=== PATIENT | male | born 1995 | race Caucasian/White ===

== ENCOUNTER 2017-07-27 10:22 | Emergency (ER) | payer OTHER, SELFPAY ==
[2017-07-27 11:58] VITALS: BP 118/85; PULSE 78; RESP 18; TEMP 36.7; O2SAT 99; BMI 67.3
--- NOTE | 2017-07-27 13:09 | PC.NURSE ---
1308: pt walked out of clinic prior to being seen. Did not speak to anyone. Unable to catch pt. Not clear if pt left or will be returning.
[2017-07-27 13:28] VITALS: BP 0/0; PULSE 0; RESP 0; TEMP -17.7; TEMP 0; O2SAT 0
== END 2017-07-27 13:29 | disposition left against medical advice (07) ==
LOC: UTC 10:27
PROVIDERS: Emergency Provider Nurse Practitioner Family; Family Provider Pediatrics Pediatric Endocrinology
DX: Z53.29 Procedure and treatment not carried out because of patient's decision for other reasons (principal)
CPT/HCPCS: 99202

== ENCOUNTER → 2017-07-31 11:13 | Outpatient (CLI) | payer OTHER, SELFPAY ==
--- NOTE | 2017-07-31 11:18 | XR_ITS ---
EXAM: XR lumbar spine min 4V HISTORY: ITS.REASON: LUMBAR PAIN,THORACIC SPRAIN,STRAIN OF NECK ORDERING PHYSICIAN: Karen Mijares PATIENT AGE: 22 years COMPARISON: 12/16/2015 FINDINGS: Normal alignment. No fracture or dislocation. No lytic or blastic change. No significant degenerative change. The disc spaces are preserved. There is straightening of the lumbar lordosis. This is nonspecific but may be seen with muscle spasm. IMPRESSION: Straightening of lumbar lordosis otherwise negative
--- NOTE | 2017-07-31 11:18 | XR_ITS ---
EXAM: XR cervical spine 5V HISTORY: ORDERING PHYSICIAN: Karen Mijares PATIENT AGE: 22 years COMPARISON: None FINDINGS: Normal alignment. No fracture or dislocation. No lytic or blastic change. No significant degenerative change. The disc spaces are preserved. The neural foramina are widely patent. No evidence of cervical rib IMPRESSION: Negative cervical spine
--- NOTE | 2017-07-31 11:22 | XR_ITS ---
EXAM: XR thoracic spine 3V HISTORY: ITS.REASON: THORACIC SPRAIN,BACK PAIN COMPARISON: None FINDINGS: Normal alignment. No fracture or dislocation. No lytic or blastic change. No significant degenerative change. The disc spaces are preserved. Suspect an osteochondroma projecting off the anterior aspect of the right second rib IMPRESSION: Negative thoracic spine. Possible osteochondroma the right second rib
== END ==
PROVIDERS: PCP Nurse Practitioner; Visit Provider Nurse Practitioner
DX: S23.9XXA Sprain of unspecified parts of thorax, initial encounter (principal); M54.5 Low back pain; S16.1XXA Strain of muscle, fascia and tendon at neck level, initial encounter
CPT/HCPCS: 72050; 72072; 72110

== ENCOUNTER 2019-10-13 21:01 | Emergency (ER) | payer BC, SELFPAY ==
[2019-10-13 21:08] VITALS: BP 128/88; PULSE 105; RESP 16; TEMP 37.2; O2SAT 96; BMI 28.2
--- NOTE | 2019-10-13 21:18 | XR_ITS ---
PROCEDURE: XR SHOULDER LT MIN 2V CLINICAL INDICATION: Pain, no injury COMPARISON: No exams were available for comparison FINDINGS: The clavicle is intact and the AC joint appears normal. The humeral head and glenoid normal. There is no subacromial stenosis. The soft tissues are normal. IMPRESSION: No acute findings. Dictated by: Dr. Kishor Lino MD 10/14/2019 07:[address] Kishor Lino MD in [place] 10/14/2019 07:45
--- NOTE | 2019-10-13 21:18 | XR_ITS ---
PROCEDURE: XR ELBOW LT MIN 3V CLINICAL INDICATION: pain COMPARISON: No exams were available for comparison FINDINGS: No fracture or dislocation. No lytic or blastic change. There is normal mineralization. The joint spaces are well-preserved. No significant degenerative/arthritic changes. No erosive changes evident. Other findings:There is no abnormal fat pad sign. IMPRESSION: No acute findings. Dictated by: Dr. Kishor Lino MD 10/14/2019 07:[address] Kishor Lino MD in [place] 10/14/2019 07:44
[2019-10-13 21:46] VITALS: BP 124/72; PULSE 90; RESP 16; O2SAT 100
--- NOTE | 2019-10-13 22:32 | HMH.EDUPEXT ---
ED Disposition Clinical Impression: Left shoulder tendonitis Disposition: Home, Self-Care Condition on Discharge: Good Instructions: DI for Shoulder Pain Additional Instructions: use meds and see pcp and ortho for follow up Prescriptions: predniSONE [Prednisone 20mg Tab] 20 mg PO BID #10 tab Transmission Status: Pending to [id number] Referrals: Provider,MD Juan [Primary Care Provider] - Chinedu Francisco MD [Staff Physician] - - Critical Care Critical Care Time: No Attestation: On 10/13/19, the high probability of a clinically significant, sudden or life threatening deterioration of the following system(s) required my full and direct attention, intervention and personal management. The time I documented below is in addition to time spent performing reported procedures but includes the following listed in this critical care notation. Medical Decision Making - Medical Records Medical records reviewed: Yes: I reviewed the patient's medical records. - Mohit Inquiry Pt receiving controlled substance: No Vital Signs: 10/13/19 21:08 10/13/19 21:46 Temperature 98.9 F Temperature Source Oral Pulse Rate [Right] 105 H 90 Respiratory Rate 16 16 Blood Pressure [Right Arm] 128/88 124/72 Blood Pressure Mean [Right Arm] 101 89 Blood Pressure Source [Right Arm] Automatic Cuff Automatic Cuff Blood Pressure Position [Right Arm] Sitting Sitting 02 Sat by Pulse Oximetry 96 100 Oxygen Delivery Method Room Air Room Air - Lab Data Lab results reviewed: Yes: I reviewed the patient's lab results. Orders (Tests/Meds): ORDERS Category Date Time Status XR elbow LT min 3V Stat Exams 10/13/19 21:18 Taken XR shoulder LT min 2V Stat Exams 10/13/19 21:18 Taken - Radiology Data #1 Image(s): Shoulder, Elbow Image Reviewed: Yes I reviewed the patient's radiology image Preliminary Findings: No Fracture Seen Upper Extremity HPI - General Chief Complaint: Extremity Problem,Nontraumatic Stated Complaint: Pain L arm and can't move Time Seen by Provider: 10/13/19 21:35 Mode of Arrival: Ambulatory Source of Information: Patient, Medical Record Limitations: No Limitations Description of Symptoms (Recalled from ER Triage Doc. by RN): Pt states his left shoulder and elbow started hurting him about 1.5 weeks ago, denies injury to arm. Pt states this happened before, but never this long. - History of Present Illness HPI narrative: lt upper ext pain with dec rom - no trauma - worse with mov - has happened before but not as long MD complaint: injury to: left, shoulder Onset (ago): day(s) Other Extremity Injury: Left: shoulder Other injuries: none Handedness: right Place: home Severity: moderate Context: other (no fall) Associated symptoms: denies other symptoms - Related Data Previous Rx's Medication Instructions Recorded predniSONE [Prednisone 20mg 20 mg PO BID #10 tab 10/13/19 Tab] Allergies Allergy/AdvReac Type Severity Reaction Status Date / Time No Known Allergies Allergy Verified 05/07/19 14:36 [facility] History - Hepatitis A Screen Drug use history?: No High risk sexual behaviors?: No History of sexually transmitted infection?: No Currently employed?: No Childcare worker?: No Do you have indoor plumbing?: Yes Do you have electricity?: Yes Attestation statement:: This patient has been screened for Hepatitis A risk factors. I have reviewed the patient's past medical history: Yes Medical History: Denies:: Cancer, Diabetes Mellitus Type 1, Diabetes Mellitus Type 2, MRSA Amputation: No - Social History Smoking Status: Current every day smoker Tobacco Type: smokeless tobacco Alcohol Intake: current Alcohol Intake Frequency:: a few times a week Occupational Status: employed ROS Obtained: Yes All systems reviewed & no additional complaints - Constitutional Constitutional: Denies fever(s) - Eyes Eyes: Denies change in vision - ENT Ears,
[2019-10-13 22:52] VITALS: BP 120/73; PULSE 95; RESP 16; TEMP 36.9; O2SAT 98
[2019-10-13 22:58] VITALS: BP 120/73; PULSE 95; RESP 16; TEMP 36.9; O2SAT 98
== END 2019-10-13 22:59 | disposition home or self-care (01) ==
PROVIDERS: Emergency Provider Emergency Medicine
DX: M75.82 Other shoulder lesions, left shoulder (principal); F17.290 Nicotine dependence, other tobacco product, uncomplicated
CPT/HCPCS: 73030; 73080; 99282

== ENCOUNTER → 2021-01-29 21:31 | Outpatient (CLI) | payer SELFPAY | PROVIDERS: Visit Provider Nurse Practitioner Family | DX: Z20.822 Contact with and (suspected) exposure to COVID-19 (principal) | CPT/HCPCS: U0003 ==

== ENCOUNTER 2021-03-03 19:33 | Emergency (ER) | payer BC, SELFPAY ==
[2021-03-03 19:35] VITALS: BP 148/79; PULSE 79; RESP 18; TEMP 37.7; O2SAT 98; BMI 36.9
--- NOTE | 2021-03-03 19:45 | XR_ITS ---
PROCEDURE INFORMATION: Exam: XR Left Ankle Exam date and time: 03/03/2021 7:45 PM Age: 25 years old Clinical indication: Injury or trauma; Other: Stepped off curb and rolled ankle; Sprain or strain; Left; Injury date: 03/03/2021; Additional info: Twisted ankle TECHNIQUE: Imaging protocol: XR Left ankle. Views: 3 or more views. COMPARISON: CR XR FOOT LT MIN 3V 03/03/2021 7:43 PM FINDINGS: Bones/joints: Tiny calcifications/osseous fragments inferior to the medial malleolus are of chronic etiology and may be related to sequela of prior injury or tendinopathy. Normal anatomic alignment. There is no evidence of acutely displaced fractures. There is no evidence of joint dislocation. No aggressive osseous lesions. Soft tissues: There is soft tissue swelling. IMPRESSION: 1. Negative for acute skeletal pathology. 2. Ankle swelling.
--- NOTE | 2021-03-03 19:48 | XR_ITS ---
PROCEDURE INFORMATION: Exam: XR Left Foot Exam date and time: 03/03/2021 7:48 PM Age: 25 years old Clinical indication: Injury or trauma; Other: Stepped off curb and rolled ankle; Sprain or strain; Foot; Left; Injury date: 03/03/2021; Additional info: Stepped off of a curb TECHNIQUE: Imaging protocol: XR Left foot. Views: 3 or more views. COMPARISON: No relevant prior studies available. FINDINGS: Bones/joints: Osseous anatomic alignment is well preserved. No acutely displaced fracture or dislocation. Joint spaces are well preserved. Soft tissues: No significant soft tissue swelling. IMPRESSION: No acute findings.
--- NOTE | 2021-03-03 20:01 | HMH.EDUTC ---
[facility] Disposition Clinical Impression: Left ankle sprain Qualifiers: Encounter type: initial encounter Involved ligament of ankle: unspecified ligament Qualified Code(s): S93.402A - Sprain of unspecified ligament of left ankle, initial encounter Disposition: Home, Self-Care Condition on Discharge: Good Instructions: How to Use Crutches, How To Perform RICE (Rest, Ice, Compress, Elevate), DI for Ankle Sprain, Ankle Sprain Additional Instructions: *No weight bearing *RICE, Rest the extremity, Ice 15-20 minutes 3-4 times daily, Compress- wear the leo wrap as discussed as much as possible to help reduce swelling and pain, Elevate the extremity when at rest *Leo wrap/walking boot is for support and help control swelling, use it except in the shower. Be sure that is not to tight but not to loose either *Elevate when resting *Ibuprofen as directed on package every 6-8 hours as needed for pain an inflammation. If need something more can take Tylenol in between doses of Ibuprofen to help Immediately follow up with your family doctor for new or worsening of symptoms, or no noticeable improvement over the next 3-5 days Follow up with Orthopedics or Podiatry Call office for appointment Call back to the [facility] later this evening or tomorrow for the official reading of your xray Return if needed Straight to ER if any life threatening symptoms Referrals: Provider,Referral, [Primary Care Provider] - As needed Davida Hernandez DPM [Staff Physician] - Gardenia Stevenson APRN [Nurse Practitioner] - Chinedu Francisco MD [Staff Physician] - Forms: Work/School Release Medical Decision Making - Mohit Inquiry Pt receiving controlled substance: No Mohit was queried for this patient: No Vital Signs: 03/03/21 19:35 03/03/21 20:20 Temperature 99.9 F H 99.9 F H Temperature Source Oral Pulse Rate 79 Pulse Rate [Right Brachial] 79 Respiratory Rate 18 18 Blood Pressure 148/79 H Blood Pressure [Right Arm] 148/79 H Blood Pressure Mean [Right Arm] 102 Blood Pressure Source [Right Arm] Automatic Cuff Blood Pressure Position [Right Arm] Sitting 02 Sat by Pulse Oximetry 98 Oxygen Delivery Method Room Air - Radiology Data #1 Image(s): Ankle Image Reviewed: Yes I have reviewed radiologist's interpretation IMPRESSION: 1. Negative for acute skeletal pathology. 2. Ankle swelling. #2 Image(s): Foot/Toes Image Reviewed: Yes I have reviewed radiologist's interpretation IMPRESSION: No acute findings. [facility] HPI - General Stated complaint: AO10/02 sprained left ankle Time Seen by Provider: 03/03/21 20:01 Mode of Arrival: Ambulatory Source of Information: Patient Limitations: No Limitations Description of Symptoms (Recalled from Triage Doc. by RN): PATIENT C/O LEFT ANKLE AND FOOT PAIN. REPORTS HE STEPPED OFF OF CURB AND TWISTED HIS ANKLE LAST NIGHT HEENT Symptoms (Recalled from RN notes): No Resp Symptoms (Recalled from RN notes): No Skin Symptoms (Recalled from RN notes): No MS Symptoms (Recalled from RN notes): Yes Functional Status (Recalled from RN notes): WNL - History of Present Illness Provider Complaint: Patient states that he was out last night and went to step off the curb when his left ankle rolled and he felt something pop States that he has been having pain and swelling ever since States that this evening he was still having pain so he came in to get it checked out - Related Data Home Medications Medication Instructions Recorded Confirmed No Known Home Medications 01/29/21 01/29/21 Allergies Allergy/AdvReac Type Severity Reaction Status Date / Time No Known Allergies Allergy Verified 01/29/21 17:20 - Worker's Comp Is this a Worker's Comp case?: No [facility] History - Hepatitis A Screen Drug use history?: No High risk sexual behaviors?: No History of sexually transmitted infection?: No Currently employed?: No Childcare worker?: No Do you have indoor plumbing?: Yes Do you have
[2021-03-03 20:20] VITALS: BP 148/79; PULSE 79; RESP 18; TEMP 37.7; O2SAT 98
== END 2021-03-03 20:50 | disposition home or self-care (01) ==
PROVIDERS: Emergency Provider Nurse Practitioner
DX: S93.402A Sprain of unspecified ligament of left ankle, initial encounter (principal); X50.1XXA Overexertion from prolonged static or awkward postures, initial encounter; Y92.480 Sidewalk as the place of occurrence of the external cause; Z87.891 Personal history of nicotine dependence
CPT/HCPCS: 29515; 73610; 73630; 99202; G0463

== ENCOUNTER 2021-03-15 11:18 | Outpatient (RCR) | payer BC, SELFPAY | END 2021-03-15 12:00 | disposition home or self-care (01) | LOC: PT 11:18 | PROVIDERS: Visit Provider Orthopaedic Surgery | DX: M25.572 Pain in left ankle and joints of left foot (principal) | CPT/HCPCS: 97760 ==

== ENCOUNTER 2021-04-03 17:35 | Emergency (ER) | payer BC, SELFPAY ==
[2021-04-03 17:50] VITALS: BP 117/84; PULSE 109; RESP 20; TEMP 37.5; O2SAT 97; BMI 33.0
[2021-04-03 18:31] LABS: UTC Strep Screen (Rapid) Positive (Negative)
[2021-04-03 18:48] LABS: Influenza A, PCR Not Detected (NotDetected); Influenza B, PCR Not Detected (NotDetected)
--- NOTE | 2021-04-03 19:03 | HMH.EDUTC ---
[facility] [place] Dis[place] Clinical Impression: Strep throat Disposition: Home, Self-Care Condition on Discharge: Good Instructions: Strep Throat, DI for Strep Throat Additional Instructions: *Monitor Temp, Over the counter Motrin or Tylenol as directed/as needed Tylenol every 4 hours and Motrin every 6 hours (as long as your family doctor has told you that you can take it) for fever or pain. and straight to ER if unable to lower temp less than 101.0 after medication given *Warm salt water gargles may help to soothe the throat *Throat Lozenges *Warm fluids like tea with honey may help to soothe the throat *Sleep elevated *Humidifier/Vaporizer *If you did not take Penicillin shot or was unable to, start taking antibiotic immediately and make sure that you take it for the FULL length of time although you should start to feel better in 24-48 hours *change toothbrush and toothpaste 24-48 hours after starting to take antibiotics so you do not reinfect yourself Monitor Temp. Tylenol and/or Ibuprofen as needed. ER if fever is no less than 101 despite alternating Tylenol and Ibuprofen * Encourage fluids, water, Gatorade, powerade, pedialyte if /toddler/or child *Cold fluids, popsicles and ice cream may feel good on his throat Follow up IMMEDIATELY for new or worsening symptoms or no Noticeable improvement over the next 48-72 hours. 911 for difficulty breathing or swallowing You were tested for today for COVID19 your test result should be back in the next 24-48 hours, you can view your results on the [facility] portal you will be given hand out on how to log on if you have trouble you may call the [facility] You was given a handout with instructions for Self Quarantine and Self isolation for while you wait on test results and what to do if they are positive If you are positive the Health Dept will be contacting you also Make sure to take your Vitamins Vit. C Vit D and Zinc if you can take them Prescriptions: Amoxicillin [Amoxicillin 875MG Tab] 875 mg PO Q12H #20 tab Transmission Status: Pending to [facility] #[id number] Referrals: Provider,Referral, MD [Primary Care Provider] - As needed Forms: Work/School Release Time of Disposition: 19:06 Medical Decision Making - Mohit Inquiry Pt receiving controlled substance: No Mohit was queried for this patient: No Vital Signs: 04/03/21 17:50 Temperature 99.5 F Temperature Source Oral Pulse Rate [Right Brachial] 109 H Respiratory Rate 20 Blood Pressure [Right Arm] 117/84 Blood Pressure Mean [Right Arm] 95 Blood Pressure Source [Right Arm] Automatic Cuff Blood Pressure Position [Right Arm] Sitting 02 Sat by Pulse Oximetry 97 Oxygen Delivery Method Room Air - Lab Data Lab results reviewed: Yes: I reviewed the patient's lab results. Lab Results 04/03/21 18:11: Strep Scn Rapid Clinic Positive A Orders (Tests/Meds): ORDERS Category Date Time Status Rapid PCR Covid and Flu A/B Stat Lab 04/03/21 18:05 Received [facility] [place] HPI - General Stated complaint: fever,PEARL,Stomach ache body ache cough sore throat Time Seen by Provider: 04/03/21 19:04 Mode of Arrival: Ambulatory Source of Information: Patient Limitations: No Limitations Description of Symptoms (Recalled from Triage Doc. by RN): PATIENT C/O FEVER, COUGH, SORE THROAT, BODY ACHES, STOMACH ACHE AND HEADACHE SINCE LAST NIGHT HEENT Symptoms (Recalled from RN notes): Yes Resp Symptoms (Recalled from RN notes): No Skin Symptoms (Recalled from RN notes): No MS Symptoms (Recalled from RN notes): No Functional Status (Recalled from RN notes): WNL - History of Present Illness Provider Complaint: Patient states that he has been having nausea, upset stomach, fever, chills and sore throat States that he has been feeling achy all over not feeling well States that today he was still feeling ill so he came in to get checked - Related Data Previous Rx's Medication Instructions Recorded Amoxicillin [Amoxicillin 875MG 875
[2021-04-03 19:27] LABS: Coronavirus 19, PCR Detected (NotDetected)
[2021-04-03 19:30] VITALS: BP 117/84; PULSE 109; RESP 20; TEMP 37.5; O2SAT 97
--- NOTE | 2021-04-03 19:35 | PC.NURSE ---
PATIENT NOTIFIED OF POSITIVE COVID TEST AT THIS TIME
== END 2021-04-03 19:39 | disposition home or self-care (01) ==
PROVIDERS: Emergency Provider Nurse Practitioner
DX: J02.0 Streptococcal pharyngitis (principal); U07.1 COVID-19; F17.290 Nicotine dependence, other tobacco product, uncomplicated
CPT/HCPCS: 87880; 99203; C9803; G0463; U0003; U0005

== ENCOUNTER → 2022-03-03 11:37 | Outpatient (CLI) | payer BC, SELFPAY | PROVIDERS: Visit Provider Nurse Practitioner Family | DX: Z02.1 Encounter for pre-employment examination (principal) ==

== ENCOUNTER 2022-08-27 23:01 | Emergency (ER) | payer BC, SELFPAY ==
[2022-08-27 23:09] VITALS: RESP 19; TEMP 36.5; O2SAT 98; BMI 33.0
--- NOTE | 2022-08-28 00:07 | HMH.EDWNDL ---
Discharge Plan Disposition Patient Disposition: Home, Self-Care Prescriptions Prescriptions: New cephalexin [cephalexin] 500 mg capsule 500 mg PO TID Qty: 30 0RF No Action amoxicillin 875 MG tablet 875 mg PO Q12H Qty: 20 0RF Referrals Follow up/Referrals: Provider,Referral, [Primary Care Provider] - See instructions Clinical Impressions Clinical Impression: Laceration Instructions Patient Instructions: DI for Laceration Repair Discharge ED Provider: Ching (ED)Bob Wound/Laceration HPI General Chief Complaint: Wound/Laceration Stated Complaint: AO 08/27/22 2145 Laceration Right foot Time Seen by Provider: 08/28/22 00:08 Mode of Arrival: Family Vehicle Source of Information: Patient, Spouse and Medical Record Limitations: No Limitations Description of Symptoms (Recalled from ER Triage Doc. by RN): 27 yo male presents with CC of right foot laceration x 2. According to patient, an axe began to fall and he kicked at it to prevent it from hitting him and it sliced the bottom of his foot in two places. SO is a nurse and cleaned wound with hibiclens and wrapped with a pressure wrap dressing. VSS. Reported minimal blood loss. History of Present Illness HPI narrative: lac to sole of rt foot on ax tonight Onset (ago): hour(s) Extremity Location: Right: foot Place: home Patient tetanus UTD: Yes Context: accidental Associated symptoms: none Related Data Previous Rx's Medication Instructions Recorded amoxicillin 875 mg tablet 875 mg PO Q12H #20 tabs 04/03/21 cephalexin 500 mg capsule 500 mg PO TID #30 caps 08/28/22 Allergies Allergy/AdvReac Type Severity Reaction Status Date / Time No Known Allergies Allergy Verified 03/15/21 10:53 [facility] Disclaimer: The information contained in this section may have been updated after the patient was seen, as this information can be updated by other users. Social History Smoking Status: Never smoker alcohol intake: current current occupational status: employed Travel in the last 8 weeks: None current occupational exposures/hazards: No ROS Obtained: Yes All systems reviewed & no additional complaints except as documented Physical Exam General General appearance: alert Head Head exam: normocephalic Eye Eye exam: Present PERRL and EOMI ENT ENT exam: Present mucous membranes moist Neck Neck exam: Present full ROM Respiratory Respiratory exam: Absent respiratory distress Cardiovascular Cardiovascular exam: Present regular rate Extremities Exam Extremities exam: Present full ROM and other (2.5 cm lac sole of rt foot ) Neurological Exam Neurological exam: Present alert, oriented X3 and CN II-XII intact; Absent motor sensory deficit Psychiatric Psychiatric exam: Present normal affect Skin Skin exam: Absent rash Medical Decision Making Medical Records Medical records reviewed: Yes I reviewed the patient's medical records. Mohit Inquiry Pt receiving controlled substance: No Vital Signs: 08/27/22 23:09 Temperature 97.7 F Temperature Source Oral Respiratory Rate 19 02 Sat by Pulse Oximetry 98 Oxygen Delivery Method Room Air Lab Data Lab results reviewed: Yes I reviewed the patient's lab results. Medical Decision Narrative: lac rt foot and will need sutures out 8-10 days and recheck if needed Procedures Laceration Laceration 1: Site: foot Side (If applicable): right Size (cm): 2.5 Description: linear Depth: involves subcutaneous layer Local Anesthetic: lidocaine 1% Amount of anesthesia used (mL): 11 Pre-repair: deep structures intact Skin layer closed with: nylon Size (cm): 3-0 Number of sutures: 8 Technique: simple, interrupted Critical Care Time Critical Care Time Critical Care Time: No Attestation: On 08/27/22, the high probability of a clinically significant, sudden or life threatening deterioration of the following sy
[2022-08-28 00:31] VITALS: BP 128/73; PULSE 81; RESP 19; TEMP 36.5; O2SAT 99
== END 2022-08-28 00:32 | disposition home or self-care (01) ==
PROVIDERS: Emergency Provider Emergency Medicine
DX: S91.311A Laceration without foreign body, right foot, initial encounter (principal); W26.8XXA Contact with other sharp object(s), not elsewhere classified, initial encounter
CPT/HCPCS: 12001; 99282; 99283

== ENCOUNTER 2022-11-14 17:39 | Emergency (ER) | payer BC, OTHER, SELFPAY ==
[2022-11-14 17:50] VITALS: BP 126/75; PULSE 73; RESP 20; TEMP 36.8; O2SAT 99; BMI 32.1
--- NOTE | 2022-11-14 18:14 | PC.NURSE ---
rounded on patient, no needs at this time. Spouse at bedside
[2022-11-14 18:20] LABS: Basophils % 0.4 % (0.1-2.0); Chloride 101 mmol/L (98-107); Eosinophils # 0.2 K/mm3 (0.0-0.4); Eosinophils % 2.4 % (0.1-12.0); Hematocrit 44.1 % (42.0-52.0); Hemoglobin 14.6 g/dL (14.1-18.0); Lymphocytes % 33.5 % (10-50); Mean Corpuscular HGB Conc 33.2 g/dL (31.8-35.4); Mean Corpuscular Hemoglobin 27.7 pg (27.0-31.2); Mean Corpuscular Volume 83.3 fl (80-94); Mean Platelet Volume 8.7 fl (7.4-10.4); Monocytes # 0.6 K/mm3 (0.1-1.0); Monocytes % 6.6 % (1.7-9.3); Neutrophils # 5.1 K/mm3 (1.8-7.8); Neutrophils % 57.2 % (37.0-80.0); Platelet Count 237 K/mm3 (142-424); Red Blood Count 5.29 M/mm3 (4.60-6.20); Red Cell Distribution Width 13.6 % (11.5-17.5); Sodium 140 mmol/L (136-145); White Blood Count 8.9 K/mm3 (4.8-10.8)
[2022-11-14 18:21] LABS: Potassium 4.3 mmoL/L (3.5-5.1)
[2022-11-14 18:23] LABS: Alanine Aminotransferase 25 U/L (12-78); Alkaline Phosphatase 66 U/L (38-126); Amylase 78 U/L (30-110); Anion Gap 14.3 mEq/L (5-15); Aspartate Amino Transferase 38 U/L (17-59); Bilirubin,Total 0.4 mg/dl (0.2-1.3); Blood Urea Nitrogen 17 mg/dl (9-20); Carbon Dioxide 29 mmol/L (22.0-30.0); Creatinine Clearance Estimated 181 mL/min (50-200); Estimated Glomerular Filt Rate 91 ml/min (>60); GFR (African American) 110 ML/MIN (>60); Glucose 88 mg/dl (74-100)
[2022-11-14 18:24] LABS: Albumin Level 4.5 g/dl (3.5-5.0); Albumin/Globulin Ratio 1.4 (1.1-1.8); Calcium 9.1 mg/dl (8.4-10.2); Globulin 3.3 g/dL (1.3-3.2); Lipase 81 U/L (23-300); Total Protein,Serum 7.8 g/dl (6.3-8.2)
--- NOTE | 2022-11-14 18:38 | HMH.EDGENADL ---
Discharge Plan Disposition Patient Disposition: Home, Self-Care Prescriptions Prescriptions: New dicyclomine 20 mg tablet 20 mg PO TID PRN (Reason: abdominal pain or spasm) 7 Days Qty: 21 0RF ondansetron 4 mg tablet,disintegrating 4 mg PO Q6H PRN (Reason: nausea and vomiting) 5 Days Qty: 20 0RF No Action omeprazole 20 mg capsule,delayed release(DR/EC) 20 mg PO DAILY Referrals Follow up/Referrals: Jose Martin Arias MD [Staff Physician] - See instructions Rehana Sheehan APRN [Primary Care Provider] - See instructions Ramses Bautista MD [Staff Physician] - See instructions (within one week to schedule EGD ) Activity Restrictions/Add. Instructions Additional Instructions/Restrictions: Your emergency work-up for your periumbilical and epigastric abdominal pain is unremarkable. Remaining on the differential includes peptic ulcer disease I recommend you follow-up with a executive search consultant or general surgeon for an outpatient endoscopy or EGD. I have given you a referral to Dr. Arias due to schedule a follow-up appointment. Please return with any blood in your vomit black stools or bright red bloody stools. Clinical Impressions Clinical Impression: Abdominal pain Discharge ED Provider: Mihcael Hurtado General Adult HPI General Chief complaint: Abdominal Pain Stated complaint: abd/back pain Time Seen by Provider: 11/14/22 18:39 Mode of Arrival: Ambulatory Source of Information: Patient Limitations: No Limitations Description of Symptoms (Recalled from ER Triage Doc. by RN): pt reports epigastric abdominal pain for about a week and a half, reports occasional nausea, denies vomiting or diarrhea, saw pcp on thursday where she has been treating him for GERD, states he has been eating a bland diet and following all instructions from her but nothing is helping, states tylenol was helping with pain until a few days ago, states the pain is in his back as well now History of Present Illness HPI narrative: Patient is a 27-year-old male presenting today with epigastric and periumbilical discomfort since Thursday. This has not been particularly associated with any meals. No blood in the stool including hematochezia or melena. No hematemesis. His who is an OB RN has been giving him milk of magnesia to make sure this is not constipation he has been having good bowel movement without any difficulty. No flank pain but he does state that the pain initiates in the periumbilical and epigastric region and radiates through to his back. Between his shoulder blades where he is describing his pain. No blood in his urine. No right upper quadrant abdominal localization. No fevers or chills or any other symptoms. Patient did have a few drinks but nothing out of the ordinary the day before the onset of the symptoms. Related Data Home Medications Medication Instructions Recorded Confirmed omeprazole 20 mg capsule,delayed 20 mg PO DAILY gerd 11/14/22 11/14/22 release Previous Rx's Medication Instructions Recorded dicyclomine 20 mg tablet 20 mg PO TID PRN abdominal pain or 11/14/22 spasm 7 days #21 tabs ondansetron 4 mg disintegrating 4 mg PO Q6H PRN nausea and 11/14/22 tablet vomiting 5 days #20 tabs Allergies Allergy/AdvReac Type Severity Reaction Status Date / Time No Known Allergies Allergy Verified 11/14/22 18:03 [facility] Disclaimer: The information contained in this section may have been updated after the patient was seen, as this information can be updated by other users. Medical History (Updated 11/14/22 @ 19:54 by Michael Hurtado MD) Enteritis Laceration Left ankle sprain Left shoulder tendonitis Pain Pain, eye, right Strep throat Family History (Updated 11/11/22 @ 13:34 by Rehana Sheehan APRN) Father Diabetes Social History (Updated 11/11/22 @ 13:35 by Rehana Sheehan APRN) Smoking Status: Never smoker alcohol intake: current substance use type: denies use current occupational
--- NOTE | 2022-11-14 18:47 | CT_ITS ---
PROCEDURE INFORMATION: Exam: CT Abdomen And Pelvis With Contrast Exam date and time: 11/14/2022 7:01 PM Age: 27 years old Clinical indication: Abdominal pain; Epigastric; Additional info: Mid epigastric periumbilical pain rad to back TECHNIQUE: Imaging protocol: Computed tomography of the abdomen and pelvis with contrast. Radiation optimization: All CT scans at this facility use at least one of these dose optimization techniques: automated exposure control; mA and/or kV adjustment per patient size (includes targeted exams where dose is matched to clinical indication); or iterative reconstruction. Contrast material: ISOVUE; Contrast volume: 75 ml; Contrast route: IV; REPORTING DATA: Count of CT and Cardiac NM exams in prior 12 months: This patient has received 0 known CTs and 0 known cardiac nuclear medicine studies in the 12 months prior to the current study. COMPARISON: CT ABDOMEN PELVIS W CON 05/07/2019 3:08 PM FINDINGS: Lungs: Visualized lung bases are clear. Heart: Heart size normal. Mediastinal space: The visualized distal esophagus is largely contracted without gross abnormality. Liver: Normal contour. No mass lesions. No intrahepatic biliary ductal dilatation. Gallbladder and bile ducts: Normal. No calcified stones. No ductal dilation. Pancreas: Normal. No inflammatory changes or ductal dilation. Spleen: Borderline mild splenomegaly measuring 13.4 cm. No focal splenic lesions. Adrenal glands: Normal. No adrenal mass. Kidneys and ureters: No acute abnormalities. No hydronephrosis or hydroureter. No urinary tract stones are identified. Stomach and bowel: The stomach is largely contracted. The small bowel is nondilated with no gross abnormality. No acute colonic abnormalities. Appendix: The appendix is normal in caliber and demonstrates no evidence of appendicitis. Intraperitoneal space: No free fluid or air. Vasculature: No acute process. No abdominal aortic aneurysm. Lymph nodes: No adenopathy. Urinary bladder: Unremarkable as visualized. Reproductive: Unremarkable as visualized. Bones/joints: No acute osseous abnormalities. Mild-moderate disc space narrowing with 3 mm retrolisthesis and 3 mm disc bulge at L5-S1. Soft tissues: Small left and miniscule right fatty inguinal hernias are present with no bowel herniation or features of strangulation. IMPRESSION: 1. No definite acute findings. 2. Borderline mild splenomegaly. 3. Additional nonemergent findings detailed above.
[2022-11-14 19:56] LABS: Microscopic, Urine URINE MICROSCOPIC (MICROSCOPIC)
[2022-11-14 20:03] VITALS: BP 125/70; PULSE 73; RESP 16; TEMP 36.8; O2SAT 98
[2022-11-14 20:08] LABS: Appearance,Urine CLEAR (Clear); Bilirubin,Urine Negative (Negative); Blood, Urine Negative (Negative); Color,Urine YELLOW (Yellow); Glucose,Urine (UA) Negative (Negative); Ketones,Urine Negative (Negative); Leukocyte Esterase,Urine Negative (Negative); Nitrate,Urine Negative (Negative); PH,Urine 6.5 (5.0-8.5); Protein,Urine Negative (Negative); Specific Gravity, Urine 1.015 (1.005-1.030); Urobilinogen,Urine 0.2 EU/dl (0.2)
[2022-11-14 20:32] LABS: Sperm,Urine OCC /lpf; Squamous Epithelial Cell,Urine Occasional #/hpf (0-5)
== END 2022-11-14 20:12 | disposition home or self-care (01) ==
PROVIDERS: Emergency Provider Student in an Organized Health Care Education/Training Program; PCP Nurse Practitioner Family
DX: R10.13 Epigastric pain (principal); R10.33 Periumbilical pain; R11.0 Nausea
CPT/HCPCS: 74177; 80053; 81001; 82150; 83690; 85025; 96361; 96374; 96375; 99285; Q9967

== ENCOUNTER → 2022-11-18 10:24 | Outpatient (CLI) | payer BC, OTHER, SELFPAY ==
[2022-11-18 10:56] LABS: Basophils % 0.2 % (0.1-2.0); Eosinophils # 0.2 K/mm3 (0.0-0.4); Eosinophils % 2.7 % (0.1-12.0); Hematocrit 48.8 % (42.0-52.0); Hemoglobin 15.8 g/dL (14.1-18.0); Lymphocytes # 2.4 K/mm3 (0.7-4.5); Lymphocytes % 35.1 % (10-50); Mean Corpuscular HGB Conc 32.4 g/dL (31.8-35.4); Mean Corpuscular Hemoglobin 27.2 pg (27.0-31.2); Mean Corpuscular Volume 83.9 fl (80-94); Mean Platelet Volume 8.4 fl (7.4-10.4); Monocytes # 0.4 K/mm3 (0.1-1.0); Monocytes % 5.3 % (1.7-9.3); Neutrophils # 3.9 K/mm3 (1.8-7.8); Neutrophils % 56.8 % (37.0-80.0); Platelet Count 241 K/mm3 (142-424); Red Blood Count 5.81 M/mm3 (4.60-6.20); Red Cell Distribution Width 13.6 % (11.5-17.5); White Blood Count 6.9 K/mm3 (4.8-10.8)
[2022-11-18 11:23] LABS: Alanine Aminotransferase 37 U/L (12-78); Albumin Level 4.4 g/dl (3.5-5.0); Albumin/Globulin Ratio 1.6 (1.1-1.8); Alkaline Phosphatase 67 U/L (38-126); Anion Gap 14.2 mEq/L (5-15); Aspartate Amino Transferase 40 U/L (17-59); Bilirubin,Total 0.7 mg/dl (0.2-1.3); Blood Urea Nitrogen 13 mg/dl (9-20); Calcium 9.2 mg/dl (8.4-10.2); Carbon Dioxide 29 mmol/L (22.0-30.0); Chloride 103 mmol/L (98-107); Cholesterol 195 mg/dl (140-200); Estimated Glomerular Filt Rate 91 ml/min (>60); GFR (African American) 110 ML/MIN (>60); Globulin 2.8 g/dL (1.3-3.2); Glucose 90 mg/dl (74-100); HDL Cholesterol 39 mg/dl (40-60); Potassium 4.2 mmoL/L (3.5-5.1); Sodium 142 mmol/L (136-145); Total Protein,Serum 7.2 g/dl (6.3-8.2); Triglycerides 213 mg/dl (30-150); VLDL Cholesterol 43 mg/dL (0-40)
[2022-11-18 11:26] LABS: Hemoglobin A1C 5.6 % (4.0-6.0)
[2022-11-18 11:53] LABS: Thyroid Stimulating Hormone 1.78 uIU/mL (0.465-4.68)
== END ==
PROVIDERS: PCP Nurse Practitioner Family; Visit Provider Nurse Practitioner Family
DX: R10.9 Unspecified abdominal pain (principal); E66.9 Obesity, unspecified; Z68.32 Body mass index [BMI] 32.0-32.9, adult; Z13.1 Encounter for screening for diabetes mellitus; Z13.220 Encounter for screening for lipoid disorders
CPT/HCPCS: 36415; 80053; 80061; 83036; 84443; 85025

== ENCOUNTER 2024-02-16 06:47 | Emergency (ER) | payer BC, SELFPAY ==
[2024-02-16 06:58] VITALS: BP 122/79; PULSE 94; RESP 16; TEMP 36.8; O2SAT 99; BMI 32.1
[2024-02-16 07:04] VITALS: PULSE 93; O2SAT 98
--- NOTE | 2024-02-16 07:04 | US_ITS ---
FINAL REPORT CLINICAL HISTORY: fall 02/15/24, knee injury, denies smoking, right leg pain post fall. COMPARISON: None FINDINGS: ANKLE-BRACHIAL PRESSURE INDICES Pressure indices are as follows: RIGHT LOWER EXTREMITY: Ankle-brachial pressure index: 1.02 Comments: Normal LEFT LOWER EXTREMITY: Ankle-brachial pressure index: 1.16 Comments: Normal IMPRESSION: No evidence of significant obstructive peripheral vascular disease of the lower extremities Reviewed, Interpreted and Dictated by Charles Smith MD Transcribed by Amelia Chacon Authenticated and [facility]
--- NOTE | 2024-02-16 07:04 | XR_ITS ---
FINAL REPORT CLINICAL HISTORY: fall, medial displacement COMPARISON: None FINDINGS: RIGHT KNEE: 5 views of the right knee obtained. There is no acute fracture or dislocation. The joint spaces are intact.. There is no soft tissue abnormality. IMPRESSION: No acute process. Reviewed, Interpreted and Dictated by Charles Smith MD Transcribed by Amelia Chacon Authenticated and . [facility]
--- NOTE | 2024-02-16 07:28 | HMH.EDGENADL ---
Discharge Plan Disposition Patient Disposition: Home, Self-Care Chief Complaint: Extremity Injury, Lower Prescriptions Prescriptions: No Action omeprazole 20 mg capsule,delayed release(DR/EC) 20 mg PO DAILY dicyclomine 20 mg tablet 20 mg PO TID PRN (Reason: abdominal pain or spasm) 7 Days Qty: 21 0RF Referrals Follow up/Referrals: Rehana Sheehan APRN [Primary Care Provider] - See instructions Activity Restrictions/Add. Instructions Additional Instructions/Restrictions: Call your family doctor to establish care for this visit to the emergency department and schedule follow-up within 48 hours to ensure improvement. If you have any worsening of your condition or any other concerning signs or symptoms, return to the emergency department or your primary care doctor for further evaluation. Take Tylenol 1000 mg every 6 hours (4 times daily) and ibuprofen 400 mg every 6 hours (4 times daily) as needed with food and water to prevent GI upset and kidney damage. Clinical Impressions Clinical Impression: Acute pain of right knee Print Language Print Language: [place] Discharge ED Provider: Bright Watts General Adult HPI General Chief complaint: Extremity Injury, Lower Stated complaint: R knee injury,fall 02/14 19:30,can't straighten leg Time Seen by Provider: 02/16/24 06:50 Mode of Arrival: Ambulatory Source of Information: Patient Limitations: No Limitations Description of Symptoms (Recalled from ER Triage Doc. by RN): pt states last night around 1930 he was standing on a truck tire reaching into the bed when his right knee buckled and he fell off the tire. pt stated the knee when side ways. History of Present Illness HPI narrative: Please note that above description of symptoms, in this electronic medical record under categorization of recalled from ER triage doctor by RN are reflective of an initial nursing assessment, however, is not reflective of my full history and physical exam that was personally taken and clarified. Consequentially, this preceding description of symptoms, which may include the patient's categorized chief complaint in the EMR, do not reflect my personal clinical impression, and the ultimate description of history of present illness and patient stated complaints should be deferred to this section of the note. Unless stated otherwise or congruent with this section of the note, additional signs, symptoms, or incongruence should be interpreted as inaccurate with my clinical impression. Related Data Home Medications ?Medication ?Instructions ?Recorded ?Confirmed omeprazole 20 mg capsule,delayed 20 mg PO DAILY gerd 11/14/22 11/25/22 release Previous Rx's ?Medication ?Instructions ?Recorded dicyclomine 20 mg tablet 20 mg PO TID PRN abdominal pain or 11/14/22 spasm 7 days #21 tabs Allergies Allergy/AdvReac Type Severity Reaction Status Date / Time No Known Allergies Allergy Verified 11/25/22 08:44 [facility] Disclaimer: The information contained in this section may have been updated after the patient was seen, as this information can be updated by other users. Medical History (Updated 02/16/24 @ 07:44 by Bright Watts MD) Abdominal pain Laceration Strep throat Left ankle sprain Left shoulder tendonitis Enteritis Pain, eye, right Pain Family History Father Diabetes Social History Smoking Status: Never smoker alcohol intake: current alcohol intake frequency: holidays/special occasions only substance use type: denies use current occupational status: employed Travel in the last 8 weeks: None current occupational exposures/hazards: No ROS Obtained: Yes All systems reviewed & no additional complaints except as documented Physical Exam General General appearance: alert Head Head exam: atraumatic and normocephalic Eye Eye exam: Present normal appearance, PERRL and EOMI Neck Neck exam: Present normal inspection, full ROM and trachea midline Respiratory Respiratory exam: Absent respiratory distress, wheezes, stridor, accessory muscle use or prolonged expiratory phase Cardiovascular Cardiovascular exam: Present other (Pulses equal symmetric in upper and lower extremities) Abdominal Exam Abdominal exam: Present soft; Absent distention, tenderness or pulsatile mass Extremities Exam Extremities exam: Present other (per MDM); Absent edema Neurological Exam Neurological exam: Present alert, oriented X3 and CN II-XII intact; Absent motor sensory deficit Skin Skin exam: Present warm and dry; Absent diaphoresis or erythema Medical Decision Making Medical Records Medical records reviewed: Yes I reviewed the patient's medical records. Mohit Inquiry Pt receiving controlled substance: No Mohit was queried for this patient: No Vital Signs: 02/16/24 06:58 02/16/24 07:04 Temperature 98.2 F Temperature Source Oral Pulse Rate 93 H Pulse Rate [Right] 94 H Respiratory Rate 16 Blood Pressure [Right Arm] 122/79 Blood Pressure Mean [Right Arm] 93 02 Sat by Pulse Oximetry 99 98 Oxygen Delivery Method Room Air Orders (Tests/Meds): ED MEDICATIONS Discontinued Medications Generic Name Dose Route Start Last Admin Trade Name Kwame PRN Reason Stop Dose Admin Acetaminophen 1,000 mg 02/16/24 07:08 02/16/24 07:49 Acetaminophen 500mg Tab PO 02/16/24 07:09 1,000 mg ONCE ONE Administration Ibuprofen 600 mg 02/16/24 07:08 02/16/24 07:49 Ibuprofen 600 Mg Tablet PO 02/16/24 07:09 600 mg ONCE ONE Administration ORDERS Category Date Time Status POCUS Point of Care (ER Only) Stat Exams 02/16/24 07:41 Ordered XR knee RT 4V Stat Exams 02/16/24 07:04 Taken SHAHRZAD [US Arterial Lower Ext Rest] Routine Ultrasound 02/16/24 07:04 Completed Medical Decision Narrative: 28-year-old male no relevant medical history presenting with right knee pain. Patient states that last night about 12 hours prior to this, he was stepping off of a curb, felt as if his knee gave in, medially and had immediate pain medial aspect of his knee. Took something for pain last night, does not remember what it was. States that pain is currently mild in intensity and less he is trying to straighten it entirely. Does not radiate. Has been using crutches. No numbness, weakness, tingling distal to the injury. No blood thinner use. History was obtained via conversation with patient. On arrival, patient hemodynamically stable, alert, oriented x4, appropriate, GCS 15, moving all extremities spontaneously, pupils equal and reactive to light. Full physical exam performed and significant for structurally intact right lower extremity including ACL, PCL, MCL, LCL. Patient does have tenderness primaril medial aspect of right knee no joint space. No obvious signs of injury or deformity or swelling. Patellar glide normal. Neurovascular status intact distal to the injury. Structurally intact including ACL, PCL, MCL, LCL. Meniscus testing deferred secondary to patient discomfort. Differential includes sprain, strain, ligamentous tear, neurovascular injury, among others. Patient placed on continuous cardiac monitoring and continuous pulse ox with initial blood pressure 122/79, heart rate 93, saturation 98% on room air. Patient was given Tylenol Motrin for symptomatic management and correction of underlying abnormalities. Hematologic workup considered, but not deemed necessary in this minor injury. On independent interpretation of imaging, no acute bony abnormality of the right lower extremity. He does have small joint effusion. See radiology read for full review of final results. SHAHRZAD 1.02 right lower extremity. Left lower extremity 1.16. [id number] bedside ultrasound demonstrated without acute soft tissue abnormality of the right knee. On reevaluation, patient resting comfortably sitting in bed states his pain is better than he has at up and bend. Given patient presentation, workup, history, this most likely represents sprain of the right knee. Because patient at baseline without signs or symptoms of clinical decompensation, deemed appropriate for discharge. Results were relayed to patient who voiced understanding and were agreeable to outpatient management and follow up. I discussed my clinical impression with patient and answered all questions. At this time, the evidence for any other entities in the differential is insufficient to warrant any further testing or ED observation. This was explained as well. Advisory was given that persistent or worsening symptoms require further evaluation. I confirmed the understanding of this discussion. Journeyman Glazier disclaimer Much of this encounter note is an electronic perioperative manager spoken language to printed text. Electronic perioperative manager of the spoken language may permit errors. Although I have reviewed the note, some errors may still exist. Procedures Limited Ultrasound Indication:: Limited soft tissue ultrasound Indication: Right knee pain Identified structures: Location: Right knee Findings: Normal soft tissue ultrasound of the right knee including patellar ligament tendon, MCL, medial meniscus Impression: Normal right knee soft tissue ultrasound Images were saved to permanent archive The study was technically adequate Soft Tissue CPT Codes: CPT Neck: 74460-74 CPT Upper extremity: 36561-00 CPT Axilla: 75754-88 CPT Chest wall: 13303-12 CPT Breast: 41684-65-UR/LT (complete), 83653-61-FA/LT (limited), CPT Upper Back: 21353-53 CPT Lower Back: 30304-77 CPT Abdominal Wall: 47018-67 CPT Pelvic Wall: 80042-42 CPT Lower Extremity: 45990-76 CPT Other Soft Tissue: 07250-60 This study was performed by me, and I personally interpreted all images/videos. Based on my clinical judgement, these images were adequate and did not necessitate further imaging. Critical Care Critical Care Time Critical Care Time: No
[2024-02-16] MEDS: ACETAMINOPHEN 500MG TAB 1000 MG PO (07:49)
[2024-02-16] MEDS: IBUPROFEN 600 MG TABLET PO (07:49)
[2024-02-16 09:52] VITALS: BP 127/54; PULSE 82; RESP 18; TEMP 36.8; O2SAT 99
== END 2024-02-16 09:53 | disposition home or self-care (01) ==
PROVIDERS: Emergency Provider Emergency Medicine; PCP Nurse Practitioner Family
DX: M25.561 Pain in right knee (principal); X50.1XXA Overexertion from prolonged static or awkward postures, initial encounter
CPT/HCPCS: 73564; 93923; 99284

== ENCOUNTER 2024-02-17 10:20 | Outpatient (RCR) | payer BC, SELFPAY | END 2024-02-17 11:44 | disposition home or self-care (01) | LOC: PT 10:20 | PROVIDERS: Visit Provider Physician Assistant | DX: M25.561 Pain in right knee (principal); M23.91 Unspecified internal derangement of right knee | CPT/HCPCS: 97760 ==

== ENCOUNTER 2024-02-18 06:23 | Outpatient (CLI) | payer BC, SELFPAY ==
--- NOTE | 2024-02-18 07:28 | MR_ITS ---
FINAL REPORT CLINICAL HISTORY: Right knee pain, possible torn meniscus COMPARISON: None FINDINGS: Multi planar MR imaging was performed of the right knee. The anterior and posterior cruciate ligaments are intact. The quadriceps and patellar tendons are intact. The medial and lateral menisci are intact without evidence of tear. The medial and lateral collateral ligaments appear intact. The medial and lateral retinacula appear intact. There is a small focus of osteochondral injury along the lateral aspect of the lateral femoral condyle with a small amount of edema. There is a trace joint effusion. IMPRESSION: Small osteochondral lesion along the lateral aspect of the lateral femoral condyle. Reviewed, Interpreted and Dictated by Charles Smith MD Transcribed by Amelia Chacon Authenticated and [facility]
--- NOTE | 2024-02-18 07:29 | XR_ITS ---
PROCEDURE INFORMATION: Exam: XR Orbits Exam date and time: 02/18/2024 7:33 AM Age: 28 years old Clinical indication: Other: Prior history metal in right eye; Additional info: Rule out metallic foreign body for mri TECHNIQUE: Imaging protocol: XR of the orbits. Views: Minimum of 4 views COMPARISON: CR [id number] XR cervical spine 5V 07/31/2017 11:21 AM FINDINGS: Sinuses: Well aerated. No opacification. Bones/joints: No fracture. Soft tissues: Unremarkable. Other findings: Dental amalgam. No additional radiodense material within the field of view. IMPRESSION: 1. Dental amalgam. 2. No additional radiodense material within the field of view.
== END 2024-02-18 23:59 | disposition home or self-care (01) ==
LOC: RAD 06:24
PROVIDERS: PCP Nurse Practitioner Family; Visit Provider Physician Assistant
DX: M25.561 Pain in right knee (principal); M23.91 Unspecified internal derangement of right knee
CPT/HCPCS: 70200; 73721

== ENCOUNTER 2024-03-25 09:12 | Outpatient (CLI) | payer BC, SELFPAY | END 2024-03-25 23:59 | disposition home or self-care (01) | LOC: PREOP 09:14 | PROVIDERS: PCP Nurse Practitioner Family; Visit Provider Orthopaedic Surgery | DX: R69 Illness, unspecified (principal) ==

== ENCOUNTER 2024-03-28 08:28 | Day surgery (SDC) | payer BC, SELFPAY ==
[2024-03-25 09:58] VITALS: BMI 32.7
[2024-03-25 10:29] LABS: Basophils # 0.1 K/mm3 (0-0.2); Basophils % 1.4 % (0.1-2.0); Eosinophils # 0.2 K/mm3 (0.0-0.4); Eosinophils % 2.1 % (0.1-12.0); Hematocrit 48.1 % (42.0-52.0); Hemoglobin 15.9 g/dL (14.1-18.0); Lymphocytes # 2.1 K/mm3 (0.7-4.5); Lymphocytes % 25.4 % (10-50); Mean Corpuscular Hemoglobin 28.7 pg (27.0-31.2); Mean Corpuscular Volume 86.8 fl (80-94); Mean Platelet Volume 8.4 fl (7.4-10.4); Monocytes # 0.5 K/mm3 (0.1-1.0); Monocytes % 6.1 % (1.7-9.3); Neutrophils # 5.4 K/mm3 (1.8-7.8); Neutrophils % 64.9 % (37.0-80.0); Platelet Count 235 K/mm3 (142-424); Red Blood Count 5.54 M/mm3 (4.60-6.20); Red Cell Distribution Width 13.9 % (11.5-17.5); White Blood Count 8.4 K/mm3 (4.8-10.8)
[2024-03-25 12:44] LABS: Albumin Level 4.4 g/dl (3.5-5.0); Chloride 106 mmol/L (98-107); Sodium 140 mmol/L (136-145)
[2024-03-25 12:47] LABS: Alanine Aminotransferase 34 U/L (12-78); Albumin/Globulin Ratio 1.6 (1.1-1.8); Alkaline Phosphatase 64 U/L (38-126); Aspartate Amino Transferase 37 U/L (17-59); Bilirubin,Total 0.6 mg/dl (0.2-1.3); Blood Urea Nitrogen 16 mg/dl (9-20); Calcium 8.9 mg/dl (8.4-10.2); Carbon Dioxide 27 mmol/L (22.0-30.0); Creatinine Clearance Estimated 183 mL/min (50-200); Estimated Glomerular Filt Rate 90 ml/min (>60); GFR (African American) 109 ML/MIN (>60); Globulin 2.7 g/dL (1.3-3.2); Glucose 100 mg/dl (74-100); Total Protein,Serum 7.1 g/dl (6.3-8.2)
[2024-03-28] VITALS (10 sets, daily range): BP systolic 121–133; BP diastolic 69–85; PULSE 57–70; RESP 16–18; TEMP 36.3–36.8; O2SAT 93–99; BMI 32.7
[2024-03-28] MEDS: LACTATED RINGERS 1000ML 1,000 ML 100 ML IV (08:53)
--- NOTE | 2024-03-28 09:54 | P.PNANES_ITS ---
[facility] Disclaimer: The information contained in this section may have been updated after the patient was seen, as this information can be updated by other users. Medical History Abdominal pain Laceration Strep throat Left ankle sprain Left shoulder tendonitis Enteritis Pain, eye, right Pain Surgical History No significant past surgical history Family History Father Diabetes Family history of stroke Family history of diabetes mellitus type II Mother Asthma Grandfather Family history of diabetes mellitus type II Social History Smoking Status: Current every day smoker tobacco type: smokeless tobacco alcohol intake: current alcohol intake frequency: holidays/special occasions only substance use type: denies use current occupational status: employed Travel in the last 8 weeks: None household members: significant other and children housing: house 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 current occupational exposures/hazards: Yes [facility] Anesthesia Checklist Patient Identification Patient Identification: Arm Band Structural Data Admitted From: Home Planned Operative Procedure/s: Right Knee Arthroscopy Consent for Planned Operative Procedure(s) Verified: Yes Verified Documents: Surgical Consent and History and Physical NPO Status Verified Time NPO: 00:00 Additional verifications Anesthesia Reactions: No Hx Blood Transfusions: No Blood Transfusion Reaction: No Cephalosporin Allergy: No Airway Assessment Mallampati Score:: Class II C-Spine Mobility Assessed: Yes TMJ Mobility Assessed: Yes Dentition: Good Dentition Neurological Assessment Level of Consciousness: Awake, Alert and Appropriate Anesthesia Plan Anesthesia Risk discussed: Yes Anesthesia Plan: Verified ASA Class: II Anesthesia Type: General
[2024-03-28] MEDS: CEFAZOLIN SODIUM 2 GM in 0.9 % SODIUM CHLORIDE 100 ML IV (10:20)
[2024-03-28] MEDS: BUPIVACAINE 0.25% 30ML VIAL 75 MG (10:45)
[2024-03-28] MEDS: SODIUM CHLORIDE IRRIG SOLUTION 6,000 ML 100 ML IR (10:45)
--- NOTE | 2024-03-28 10:58 | EXP.OP.NOTE ---
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 Right knee large medial engaging plica Procedure performed:: Right knee arthroscopy with chondroplasty medial femoral condyle small cartilage OCD Right knee arthroscopy excision medial engaging plica Surgeon:: Percy Rush DO Supervisor Ovens(s):: Zack BENTLEY SEQUINS STRINGER:: Sunday Arambula Anesthesia: GETA Estimated blood loss (mL): 0 Clinical Note:: 28-year-old male with injury to his knee and failed conservative treatment including injection home exercise program strengthening still with mechanical symptoms of medial sided symptoms presented for diagnostic arthroscopy possible chondroplasty of OCD lesion. Operative findings:: Small osteochondral lesion with unstable flap most lateral aspect the medial femoral condyle Large medial engaged plica Operative note:: Patient identified preoperatively. Right knee marked with yes and my initials. Transferred operative suite placed upon the operating bed general anesthesia was administered and airway was secured. Right lower extremity prepped and draped within the knee darden. Once prepped and draped final operative timeout performed to identify proper patient procedure and extremity. Everyone involved in the case agreed. There were no counter indications to beginning. He did receive preoperative antibiotics. Marking pen was used to jayro the bony landmarks of the knee and standard portal sites. Esmarch was used to exsanguinate the extremity and pneumatic tourniquet was inflated to 300 mmHg. Skin knife is used to incise standard anterior lateral portal and blunt with trocar was placed in the patellofemoral joint and exchanged with a camera. Diagnostic arthroscopy began. Upon sweeping into the medial joint line there was a large irritated engaging medial plica. I was swept into the medial joint line where the anterior medial portal was made with the help of an 18-gauge spinal needle. This was exchanged with a probe. Inside the medial femoral condyle probed the entire posterior portion of this as well as the posterior horn and body of the medial meniscus and anterior horn of the medial meniscus. There is no evidence of meniscal tear there is no full-thickness lesion of the tibia upon examination of the cartilage there was a small flap on the most lateral aspect of the medial femoral condyle of an unstable OCD lesion. Once I placed the probe a small straight biter was placed to remove the unstable flap and sucker shaver was used to complete chondroplasty. This was very lightly debrided to maintain underlying cartilage that was present. This was not a full lesion down to subchondral bone. Attention was then brought into the medial gutter again patellofemoral joint where the medial plica was excised with a sucker shaver. Attention was brought to the intercondylar notch the ACL was seen and intact. Attention was brought to the lateral joint line within the lateral joint line the cartilage was intact the meniscus was intact specifically looking at the area on the MRI scan on the lateral femoral condyle showed no loose OCD lesion of the lateral femoral condyle. Lateral tibia cartilage maintained as well. I swept into the medial and lateral gutters back in the patellofemoral joint no further pathology was seen. The camera was removed. Joint drained. Local anesthesia infiltrated the portal sites. Skin closed with nylon stitch. Sterile dressing placed from toe to thigh. Patient waken anesthesia taken recovery in stable condition. Condition: stable Disposition: PACU Complications:: None apparent
--- NOTE | 2024-03-28 10:59 | P.PNANES_ITS ---
[facility] Anesthesia Record Part I Anesthesia Record I Intake, IV Amount: 900 Hydration: Adequate Estimated blood loss (mL): 5 Urine output (mL): 0 Blood Products used (#): none Blood Pressure: 132/85 SaO2: 94 Pulse Rate: 62 Airway Patency: Patent Respiratory Rate: 16 Temperature: 98.3 F Patient is:: Drowsy and Stable Stable to PACU at:: 10:55
--- NOTE | 2024-03-28 14:25 | P.PNANES_ITS ---
[facility] Anesthesia Record Part II Anesthesia Record Part II Discharge Time: 11:25 Destination: Surgical Day Care (OP Surgery) PACU nurse assessment reviewed?: Yes Patient Condition:: Good Anesthesia Complications:: None Swallowing reflex intact?: Yes Airway Patency: Patent Cyanosis?: No Blood Pressure: 133/69 SaO2: 97 Respiratory Rate: 16 Pulse Rate: 67 Temperature: 98 F Mental Status: Alert & Oriented Pain level:: 0 Nausea and/or vomitting:: None Intake, IV Amount: 0 Hydration: Adequate
== END 2024-03-28 11:57 | disposition home or self-care (01) ==
PROVIDERS: Nurse Anesthetist, Certified Registered; PCP Nurse Practitioner Family; Visit Provider Orthopaedic Surgery
PROC: (CPT 29870; principal; 2024-03-28 10:30)
DX: M93.961 Osteochondropathy, unspecified, right lower leg (principal); M67.51 Plica syndrome, right knee
CPT/HCPCS: 29877; 80053; 85025; 96374; J0690; J1100; J1885; J2250; J2405; J3010; J7120

== ENCOUNTER 2024-05-10 14:00 | Outpatient (RCR) | payer BC, SELFPAY ==
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
== END 2024-05-10 23:59 | disposition home or self-care (01) ==
LOC: PT 14:00
PROVIDERS: PCP Nurse Practitioner Family; Visit Provider Physician Assistant Surgical
DX: M25.561 Pain in right knee (principal); Z98.890 Other specified postprocedural states
CPT/HCPCS: 97010; 97014; 97110; 97163; 97530; G0283